=== PATIENT | female | born 1950 | race Caucasian/White ===

== ENCOUNTER 2024-07-16 10:22 | Inpatient (IN) | payer MEDICARE, MEDICAID ==
[~2024-07-16] VITALS: Ht 157.5 cm; Wt 73.6 kg
[~2024-07-16 10:22] MED LIST: ALBU8HFA PO; DILT360C52 PO; PANT40TA54 PO; SUCR1TAB PO
[2024-07-16] MEDS: diphenhydrAMINE 50 mg/ml inj IV ONE (11:14)
[2024-07-16 11:35] LABS: BASOPHILS % (AUTO) 0.6 % (0-1); EOSINOPHILS % (AUTO) 0.9 % (0-6); HEMATOCRIT 34.6 % (35.0-45.0); LYMPHOCYTES % (AUTO) 18.6 % (21-51); MEAN CORPUSCULAR HEMOGLOBIN 26.3 PG (27.0-31.0); MEAN CORPUSCULAR HGB CONC 31.9 g/dL (33.0-36.5); MEAN CORPUSCULAR VOLUME 82.5 FL (78-98); MEAN PLATELET VOLUME 8.6 FL (7.4-10.4); MONOCYTES # (AUTO) 0.3 X10'3 (0-0.9); MONOCYTES % (AUTO) 4.9 % (2-12); NEUTROPHILS # (AUTO) 3.9 X10'3 (1.8-7.7); PLATELET COUNT 165 X10'3 (140-440); RED CELL DISTRIBUTION WIDTH 16.2 % (11.5-14.5); WHITE BLOOD COUNT 5.2 X10'3 (4.5-11.0)
[2024-07-16] MEDS ORDERED: diatrozoate meglu/diatrozoate sod (37% iodine) 120ML oral solution PO ONE (11:40)
[2024-07-16 12:03] LABS: ALANINE AMINOTRANSFERASE 13 U/L (12-78); ALBUMIN/GLOBULIN RATIO 0.9 (1.1-1.5); ALKALINE PHOSPHATASE 111 IU/L (46-116); ANION GAP 12 (8-16); ASPARTATE AMINO TRANSFERASE 13 U/L (10-37); BILIRUBIN,TOTAL 0.5 MG/DL (0.1-1.0); BLOOD UREA NITROGEN 17 MG/DL (7-18); BUN/CREATININE RATIO 13.3 (10.0-20.0); CALCIUM 8.5 MG/DL (8.5-10.1); CHLORIDE 104 MMOL/L (99-107); CREATININE 1.28 MG/DL (0.40-0.90); GLUCOSE 103 MG/DL (70-104); LIPASE 37 U/L (16-77); SODIUM 141 MMOL/L (135-145); TOTAL CARBON DIOXIDE 25.5 MMOL/L (24-32); TOTAL PROTEIN 6.2 G/DL (6.4-8.2); eCRCL 30 ML/MIN; eGFR 41 ML/MIN
[2024-07-16] MEDS ORDERED: iohexol 300mg/ml 100ml inj. ONE (12:08)
[2024-07-16] MEDS: diatr meglu/diatrizoate 30ml oral sol.-(3 dose) bottle PO ONE (12:13)
[2024-07-16] MEDS ORDERED: magnesium sulf-water 4G/100mL 100 ML IV PRN (15:30)
[2024-07-16] MEDS ORDERED: mag hydrox/Alum hydrox/simeth 30ml oral suspension PO PRN (15:30)
[2024-07-16] MEDS ORDERED: HYDROmorphone inj. 0.5 MG/0.5 ML DISP.SYRIN IV PRN (15:30)
[2024-07-16] MEDS ORDERED: magnesium sulf-water 2g/50mL 50 ML IV PRN (15:30)
[2024-07-16] MEDS ORDERED: potassium Cl 20 mEq SR tablet PO PRN (15:30)
[2024-07-16] MEDS ORDERED: acetaminophen 325mg tablet PO PRN (15:30)
[2024-07-16] MEDS ORDERED: HYDROmorphone/PF 0.2 MG/ML SYRINGE IV PRN (15:30)
[2024-07-16] MEDS ORDERED: ondansetron/PF 4mg/2ml inj IV PRN (15:30)
[2024-07-16] MEDS ORDERED: potassium Cl 40MEQ/1/2NS 520ml 520 ML IV PRN (15:30)
[2024-07-16] MEDS ORDERED: bisacodyl 10mg suppository rectal RC PRN (15:30)
[2024-07-16] MEDS: sincalide inj 1.5 MCG in normal saline 100ml IV soln 98.5 ML IV ONE (15:46)
[2024-07-16] MEDS: normal saline 1000ml 1,000 ML IV SCH (15:53)
[2024-07-16 17:56] VITALS: BP 126/70; PULSE 60; RESP 16; TEMP 97.9; O2SAT 99
[2024-07-16] MEDS: docusate sod 100mg capsule PO SCH (20:00)
[2024-07-16] MEDS: K and/or MAG REPLACEMENT MC SCH (20:00)
[2024-07-16 20:20] VITALS: RESP 18
[2024-07-16] MEDS: heparin, porcine 5000 units/ml vial SQ SCH (20:40)
[2024-07-16 22:00] VITALS: BP 124/74; PULSE 56; RESP 14; TEMP 97.6; O2SAT 97
[2024-07-17] VITALS (9 sets, daily range): BP systolic 130–150; BP diastolic 68–101; PULSE 72–84; RESP 14–18; TEMP 96–98.6; O2SAT 95–98
[2024-07-17 06:01] LABS: BASOPHILS % (AUTO) 0.7 % (0-1); EOSINOPHILS # (AUTO) 0.1 X10'3 (0-0.9); EOSINOPHILS % (AUTO) 2.5 % (0-6); HEMATOCRIT 31.8 % (35.0-45.0); HEMOGLOBIN 10.1 g/dl (12.0-16.0); LYMPHOCYTES # (AUTO) 0.9 X10'3 (1.1-4.8); LYMPHOCYTES % (AUTO) 20.2 % (21-51); MEAN CORPUSCULAR HEMOGLOBIN 26.3 PG (27.0-31.0); MEAN CORPUSCULAR HGB CONC 31.7 g/dL (33.0-36.5); MEAN PLATELET VOLUME 8.6 FL (7.4-10.4); MONOCYTES # (AUTO) 0.3 X10'3 (0-0.9); MONOCYTES % (AUTO) 5.9 % (2-12); NEUTROPHILS # (AUTO) 3.1 X10'3 (1.8-7.7); NEUTROPHILS % (AUTO) 70.7 % (42-75); PLATELET COUNT 143 X10'3 (140-440); RED BLOOD COUNT 3.83 X10'6 (4.20-5.60); WHITE BLOOD COUNT 4.4 X10'3 (4.5-11.0)
[2024-07-17 06:20] LABS: ALANINE AMINOTRANSFERASE 11 U/L (12-78); ALBUMIN 2.7 G/DL (3.4-5.0); ALBUMIN/GLOBULIN RATIO 0.9 (1.1-1.5); ALKALINE PHOSPHATASE 102 IU/L (46-116); ANION GAP 11 (8-16); ASPARTATE AMINO TRANSFERASE 14 U/L (10-37); BILIRUBIN,TOTAL 0.4 MG/DL (0.1-1.0); BLOOD UREA NITROGEN 13 MG/DL (7-18); BUN/CREATININE RATIO 11.7 (10.0-20.0); CALCIUM 8.3 MG/DL (8.5-10.1); CHLORIDE 108 MMOL/L (99-107); CREATININE 1.11 MG/DL (0.40-0.90); GLUCOSE 87 MG/DL (70-104); MAGNESIUM 1.7 MG/DL (1.5-2.4); POTASSIUM 3.6 MMOL/L (3.5-5.1); SODIUM 142 MMOL/L (135-145); TOTAL CARBON DIOXIDE 23.2 MMOL/L (24-32); TOTAL PROTEIN 5.6 G/DL (6.4-8.2); eCRCL 34 ML/MIN; eGFR 48 ML/MIN
[2024-07-17] MEDS ORDERED: [UNRECOGNIZED DRUG - CODE] PO (10:38)
[2024-07-17] MEDS: metroNIDAZOLE-Flagyl 500mg/NS 100 ML IV SCH (17:08)
[2024-07-17] MEDS: pantoprazole 40mg Tablet.DR PO SCH (20:00)
[2024-07-17] MEDS: ciprofloxacin lact 400MG/200ML 200 ML IV SCH (20:00)
[2024-07-17] MEDS: diatr meglu/diatrizoate 30ml oral sol.-(3 dose) bottle PO SCH (22:12)
[2024-07-18] VITALS (8 sets, daily range): BP systolic 146–163; BP diastolic 86–98; PULSE 53–88; RESP 16–20; TEMP 97.2–98.3; O2SAT 91–98
[2024-07-18 04:35] LABS: BASOPHILS % (AUTO) 0.7 % (0-1); EOSINOPHILS # (AUTO) 0.1 X10'3 (0-0.9); EOSINOPHILS % (AUTO) 1.9 % (0-6); HEMATOCRIT 30.2 % (35.0-45.0); HEMOGLOBIN 9.6 g/dl (12.0-16.0); LYMPHOCYTES # (AUTO) 0.9 X10'3 (1.1-4.8); LYMPHOCYTES % (AUTO) 20.3 % (21-51); MEAN CORPUSCULAR HEMOGLOBIN 26.4 PG (27.0-31.0); MEAN CORPUSCULAR HGB CONC 31.8 g/dL (33.0-36.5); MEAN CORPUSCULAR VOLUME 83.1 FL (78-98); MEAN PLATELET VOLUME 8.4 FL (7.4-10.4); MONOCYTES # (AUTO) 0.3 X10'3 (0-0.9); MONOCYTES % (AUTO) 6.4 % (2-12); NEUTROPHILS # (AUTO) 3.1 X10'3 (1.8-7.7); NEUTROPHILS % (AUTO) 70.7 % (42-75); PLATELET COUNT 137 X10'3 (140-440); RED BLOOD COUNT 3.63 X10'6 (4.20-5.60); RED CELL DISTRIBUTION WIDTH 16.3 % (11.5-14.5); WHITE BLOOD COUNT 4.4 X10'3 (4.5-11.0)
[2024-07-18 04:54] LABS: ALANINE AMINOTRANSFERASE 9 U/L (12-78); ALBUMIN 2.5 G/DL (3.4-5.0); ALBUMIN/GLOBULIN RATIO 0.9 (1.1-1.5); ALKALINE PHOSPHATASE 93 IU/L (46-116); ANION GAP 11 (8-16); ASPARTATE AMINO TRANSFERASE 18 U/L (10-37); BILIRUBIN,TOTAL 0.4 MG/DL (0.1-1.0); BLOOD UREA NITROGEN 10 MG/DL (7-18); BUN/CREATININE RATIO 9.5 (10.0-20.0); CALCIUM 8.3 MG/DL (8.5-10.1); CHLORIDE 109 MMOL/L (99-107); CREATININE 1.05 MG/DL (0.40-0.90); GLUCOSE 95 MG/DL (70-104); MAGNESIUM 1.6 MG/DL (1.5-2.4); POTASSIUM 3.5 MMOL/L (3.5-5.1); SODIUM 142 MMOL/L (135-145); TOTAL CARBON DIOXIDE 22.4 MMOL/L (24-32); TOTAL PROTEIN 5.3 G/DL (6.4-8.2); eCRCL 36 ML/MIN; eGFR 51 ML/MIN
[2024-07-18] MEDS ORDERED: hydrALAZINE 20mg/ml inj. IV PRN (10:35)
[2024-07-18] MEDS ORDERED: diatr meglu/diatrizoate 30ml oral sol.-(3 dose) bottle ONE (14:31)
[2024-07-19] VITALS (17 sets, daily range): BP systolic 109–154; BP diastolic 73–98; PULSE 59–91; RESP 13–18; TEMP 97.5–98.2; O2SAT 92–100
[2024-07-19 04:52] LABS: BASOPHILS % (AUTO) 0.7 % (0-1); EOSINOPHILS # (AUTO) 0.1 X10'3 (0-0.9); EOSINOPHILS % (AUTO) 1.9 % (0-6); HEMATOCRIT 28.3 % (35.0-45.0); HEMOGLOBIN 8.9 g/dl (12.0-16.0); LYMPHOCYTES # (AUTO) 0.6 X10'3 (1.1-4.8); LYMPHOCYTES % (AUTO) 16.8 % (21-51); MEAN CORPUSCULAR HEMOGLOBIN 26.1 PG (27.0-31.0); MEAN CORPUSCULAR HGB CONC 31.6 g/dL (33.0-36.5); MEAN CORPUSCULAR VOLUME 82.8 FL (78-98); MEAN PLATELET VOLUME 8.3 FL (7.4-10.4); MONOCYTES # (AUTO) 0.2 X10'3 (0-0.9); MONOCYTES % (AUTO) 6.6 % (2-12); NEUTROPHILS # (AUTO) 2.8 X10'3 (1.8-7.7); PLATELET COUNT 119 X10'3 (140-440); RED BLOOD COUNT 3.42 X10'6 (4.20-5.60); RED CELL DISTRIBUTION WIDTH 16.1 % (11.5-14.5); WHITE BLOOD COUNT 3.8 X10'3 (4.5-11.0)
[2024-07-19 05:00] LABS: INR 1.3 INR; PROTHROMBIN TIME 12.9 SECONDS (9.0-12.0)
[2024-07-19 05:06] LABS: ALANINE AMINOTRANSFERASE 11 U/L (12-78); ALBUMIN 2.4 G/DL (3.4-5.0); ALKALINE PHOSPHATASE 81 IU/L (46-116); ANION GAP 9 (8-16); ASPARTATE AMINO TRANSFERASE 11 U/L (10-37); BILIRUBIN,TOTAL 0.4 MG/DL (0.1-1.0); BLOOD UREA NITROGEN 8 MG/DL (7-18); BUN/CREATININE RATIO 7.3 (10.0-20.0); CALCIUM 8.1 MG/DL (8.5-10.1); CHLORIDE 109 MMOL/L (99-107); CREATININE 1.09 MG/DL (0.40-0.90); GLUCOSE 105 MG/DL (70-104); MAGNESIUM 1.4 MG/DL (1.5-2.4); POTASSIUM 3.2 MMOL/L (3.5-5.1); SODIUM 140 MMOL/L (135-145); TOTAL CARBON DIOXIDE 22.5 MMOL/L (24-32); TOTAL PROTEIN 4.9 G/DL (6.4-8.2); eCRCL 35 ML/MIN; eGFR 49 ML/MIN
[2024-07-19] MEDS: potassium Cl 20 mEq SR tablet PO PRN ×2 (07:10→20:43)
[2024-07-19] MEDS ORDERED: magnesium sulf-water 2g/50mL 50 ML IV PRN ×2 (07:15→17:55)
[2024-07-19] MEDS ORDERED: magnesium sulf-water 4G/100mL 100 ML IV PRN ×2 (07:15→17:55)
[2024-07-19] MEDS: magnesium Cl slow-release 64mg tablet PO PRN (07:22)
[2024-07-19] MEDS ORDERED: morphine 4 MG/ML inj SYRINge IV PRN (12:35)
[2024-07-19] MEDS ORDERED: ondansetron/PF 4mg/2ml inj IV PRN (12:35)
[2024-07-19] MEDS ORDERED: fentaNYL/PF 50MCG/1 ML 2ML syringe IV PRN ×2 (12:35)
[2024-07-19] MEDS ORDERED: labetalol 20mg/4ml (5mg/ml) syringe IV PRN (12:35)
[2024-07-19] MEDS ORDERED: morphine 2 MG/ML inj. syringe IV PRN (12:35)
[2024-07-19] MEDS ORDERED: hydrALAZINE 20mg/ml inj. IV PRN (12:35)
[2024-07-19] MEDS ORDERED: sevoflurane 250ml liquid IH ONE (13:30)
[2024-07-19] MEDS ORDERED: fentaNYL/PF 50MCG/1 ML 2ML syringe ONE (13:48)
[2024-07-19] MEDS ORDERED: LIDOcaine 2% (20mg/ml) 5ml vial ONE (13:48)
[2024-07-19] MEDS ORDERED: propofol inj 20 ML IV ONE (13:48)
[2024-07-19] MEDS ORDERED: midazolam 1 mg/ML 2ml injection ONE (13:48)
[2024-07-19] MEDS ORDERED: naloxone 0.4 mg/ml inj IV PRN (14:25)
[2024-07-19] MEDS ORDERED: HYDROcodone/acetaminophen 5mg/325mg tablet PO PRN (14:25)
[2024-07-19] MEDS: BUPIVAcaine 2.5mg/ml inj 50ml vial (contains preservative) ONE (14:58)
[2024-07-19] MEDS: ringers solution, lacted 1,000 ML IV SCH (14:58)
[2024-07-19] MEDS ORDERED: potassium Cl 20 mEq SR tablet PO PRN (17:55)
[2024-07-20] VITALS: BP 156/100; PULSE 71
[2024-07-20 04:44] LABS: BASOPHILS % (AUTO) 0.2 % (0-1); EOSINOPHILS % (AUTO) 0.1 % (0-6); HEMATOCRIT 27.8 % (35.0-45.0); HEMOGLOBIN 8.9 g/dl (12.0-16.0); LYMPHOCYTES # (AUTO) 0.5 X10'3 (1.1-4.8); LYMPHOCYTES % (AUTO) 12.6 % (21-51); MEAN CORPUSCULAR HEMOGLOBIN 26.6 PG (27.0-31.0); MEAN CORPUSCULAR HGB CONC 31.9 g/dL (33.0-36.5); MEAN CORPUSCULAR VOLUME 83.3 FL (78-98); MEAN PLATELET VOLUME 8.3 FL (7.4-10.4); MONOCYTES # (AUTO) 0.2 X10'3 (0-0.9); MONOCYTES % (AUTO) 4.7 % (2-12); NEUTROPHILS # (AUTO) 3.3 X10'3 (1.8-7.7); NEUTROPHILS % (AUTO) 82.4 % (42-75); PLATELET COUNT 115 X10'3 (140-440); RED BLOOD COUNT 3.33 X10'6 (4.20-5.60); RED CELL DISTRIBUTION WIDTH 16.1 % (11.5-14.5)
[2024-07-20 04:57] LABS: ALANINE AMINOTRANSFERASE 10 U/L (12-78); ALBUMIN 2.3 G/DL (3.4-5.0); ALBUMIN/GLOBULIN RATIO 0.9 (1.1-1.5); ALKALINE PHOSPHATASE 76 IU/L (46-116); ANION GAP 8 (8-16); ASPARTATE AMINO TRANSFERASE 13 U/L (10-37); BILIRUBIN,TOTAL 0.3 MG/DL (0.1-1.0); BLOOD UREA NITROGEN 8 MG/DL (7-18); BUN/CREATININE RATIO 6.7 (10.0-20.0); CALCIUM 7.8 MG/DL (8.5-10.1); CHLORIDE 111 MMOL/L (99-107); CREATININE 1.19 MG/DL (0.40-0.90); GLUCOSE 111 MG/DL (70-104); MAGNESIUM 1.3 MG/DL (1.5-2.4); SODIUM 141 MMOL/L (135-145); TOTAL CARBON DIOXIDE 22.4 MMOL/L (24-32); TOTAL PROTEIN 4.9 G/DL (6.4-8.2); eCRCL 32 ML/MIN; eGFR 44 ML/MIN
[2024-07-20 06:00] VITALS: BP 136/74; PULSE 74; RESP 16; TEMP 97.8; O2SAT 97
[2024-07-20 09:56] VITALS: RESP 18
[2024-07-20 10:00] VITALS: BP 145/86; PULSE 71; RESP 20; TEMP 97.4; O2SAT 98
[2024-07-20] MEDS ORDERED: METR-159 PO (10:23)
[2024-07-20] MEDS ORDERED: LACT1CAP76 PO (10:23)
[2024-07-20] MEDS ORDERED: CIPR-202 PO (10:23)
== END 2024-07-20 17:30 | disposition home or self-care (01) | DRG 357 ==
LOC: ER 10:22 → ED HOLD 15:33 → EDBEDREQ 16:16 → SUR 3N 17:30
PROVIDERS: ADMIT Family Medicine; ATTEND Family Medicine
PROC: CF1C1ZZ Planar Nuclear Medicine Imaging of Hepatobiliary System, All using Technetium 99m (Tc-99m) (ICD-10-PCS; 2024-07-17)
PROC: 0WBF0ZZ Excision of Abdominal Wall, Open Approach (ICD-10-PCS; principal; 2024-07-19 13:30)
DX: R19.04 Left lower quadrant abdominal swelling, mass and lump (principal); E44.0 Moderate protein-calorie malnutrition; L02.211 Cutaneous abscess of abdominal wall; K21.9 Gastro-esophageal reflux disease without esophagitis; K44.9 Diaphragmatic hernia without obstruction or gangrene; I10 Essential (primary) hypertension; Z88.8 Allergy status to other drugs, medicaments and biological substances; Z88.0 Allergy status to penicillin; Z79.899 Other long term (current) drug therapy; Z68.25 Body mass index [BMI] 25.0-25.9, adult; N28.9 Disorder of kidney and ureter, unspecified; D64.9 Anemia, unspecified
CPT/HCPCS: 36415; 74176; 74177; 78227; 80053; 82948; 83605; 83690; 83735; 85025; 85610; 87070; 87075; 87081; 93005; 99285; A4618; A6253; A6258; A6266; A6449; A7000; A9537; G0378; J0744; J1100; J1200; J1644; J2250; J2405; J2704; J2805; J3010; J3490; J7030; Q9963; Q9967

== ENCOUNTER 2024-08-12 16:19 | Emergency (ER) | payer MEDICARE, MEDICAID ==
[~2024-08-12] VITALS: Ht 157.5 cm; Wt 85.3 kg
[~2024-08-12 16:19] MED LIST changes: +CIPR-202 PO; +LACT1CAP76 PO; +METR-159 PO; +[UNRECOGNIZED DRUG - CODE] PO
[2024-08-12] MEDS ORDERED: heparin 10,000 units/1 ML INJ IV PRN (17:15)
[2024-08-12] MEDS: COMMUNICATION ORDER 1 EA MISC MC ONE (17:25)
[2024-08-12 17:27] LABS: BASOPHILS % (AUTO) 0.1 % (0-1); EOSINOPHILS % (AUTO) 0 % (0-6); HEMATOCRIT 36.2 % (35.0-45.0); HEMOGLOBIN 11.3 g/dl (12.0-16.0); LYMPHOCYTES # (AUTO) 0.4 X10'3 (1.1-4.8); LYMPHOCYTES % (AUTO) 3.7 % (21-51); MEAN CORPUSCULAR HEMOGLOBIN 26.4 PG (27.0-31.0); MEAN CORPUSCULAR HGB CONC 31.3 g/dL (33.0-36.5); MEAN CORPUSCULAR VOLUME 84.2 FL (78-98); MEAN PLATELET VOLUME 9.1 FL (7.4-10.4); MONOCYTES # (AUTO) 0.5 X10'3 (0-0.9); NEUTROPHILS % (AUTO) 92.2 % (42-75); PLATELET COUNT 191 X10'3 (140-440); RED CELL DISTRIBUTION WIDTH 19.3 % (11.5-14.5); WHITE BLOOD COUNT 11.9 X10'3 (4.5-11.0)
[2024-08-12 17:31] LABS: ABG BASE EXCESS -11.1 mmol/L (-2.0-3.0); ABG HCO3 14.1 mmol/L (21.0-28.0); ABG OXYGEN SATURATION 90.3 % (94.0-98.0); ABG PCO2 (T) 29.1 mmHg (32.0-45.0); ABG PO2 (T) 63.5 mmHg (83.0-108.0); ALLEN'S TEST POSITIVE; FCOHb 0.3 % (0.5-1.5); FHHb 9.6 % (0.0-5.0); FLOW 15 L/min; FMetHb 0.3 % (0.0-1.5); FO2Hb 89.8 % (94.0-98.0); MODE MASK - NRB; PATIENT TEMPERATURE 36.7; TOTAL HEMOGLOBIN 11.9 G/dl (12.0-16.0)
[2024-08-12] MEDS: heparin 25,000 UNIT/250ml bag 250 ML IV PRN (17:32)
[2024-08-12 17:38] LABS: D-DIMER 16.02 MG/L FEU (0-0.50)
[2024-08-12 17:47] LABS: PLATELET ESTIMATE NORMAL
[2024-08-12 17:48] LABS: ALBUMIN 2.7 G/DL (3.4-5.0); ANION GAP 13 (8-16); ANISOCYTOSIS 2+; BLOOD UREA NITROGEN 38 MG/DL (7-18); BUN/CREATININE RATIO 11.7 (10.0-20.0); BURR CELLS 1+; CALCIUM 8.5 MG/DL (8.5-10.1); CHLORIDE 105 MMOL/L (99-107); CREATININE 3.25 MG/DL (0.40-0.90); GLUCOSE 197 MG/DL (70-104); MAGNESIUM 2.2 MG/DL (1.5-2.4); PRO BRAIN NATRIURETIC PEPTIDE 22840 PG/ML (0-450); SODIUM 138 MMOL/L (135-145); TOTAL CARBON DIOXIDE 20.3 MMOL/L (24-32); eCRCL 12 ML/MIN; eGFR 14 ML/MIN
[2024-08-12 17:50] LABS: POLYCHROMASIA FEW
[2024-08-12 17:55] VITALS: PULSE 89; RESP 17; O2SAT 96
[2024-08-12] MEDS ORDERED: iohexol 350MG/ML 100ml bottle IV ONE (17:59)
[2024-08-12 18:01] LABS: INR 1.3 INR; PROTHROMBIN TIME 13.4 SECONDS (9.0-12.0)
[2024-08-12 18:07] LABS: APTT 91 SECONDS (22-32)
[2024-08-12 18:34] VITALS: PULSE 90; RESP 18; O2SAT 96
[2024-08-12] MEDS: normal saline 1000ml 1,000 ML IV ONE ×2 (19:27→19:28)
[2024-08-12] MEDS: MESSAGE TO NURSING IV ONE (19:37)
[2024-08-12] MEDS: HYDROcodone/acetaminophen 5mg/325mg tablet PO ONE (20:53)
[2024-08-12 23:28] VITALS: PULSE 87; RESP 14; O2SAT 96
[2024-08-13] MEDS: alteplase 100MG inj. 100 ML IV ONE (02:19)
[2024-08-13 03:59] VITALS: TEMP 98.6
[2024-08-13 04:04] VITALS: PULSE 84; RESP 14; O2SAT 98
[2024-08-13 04:12] VITALS: PULSE 84; RESP 16; O2SAT 93
[2024-08-13 04:13] VITALS: BP 100/74; PULSE 84; RESP 16; O2SAT 95
== END 2024-08-13 04:39 | disposition short-term general hospital (02) ==
LOC: ER 16:20
DX: J90 Pleural effusion, not elsewhere classified (principal); I26.99 Other pulmonary embolism without acute cor pulmonale; I10 Essential (primary) hypertension; Q60.0 Renal agenesis, unilateral; I48.91 Unspecified atrial fibrillation; I45.10 Unspecified right bundle-branch block; Z88.1 Allergy status to other antibiotic agents; Z88.0 Allergy status to penicillin; Z88.8 Allergy status to other drugs, medicaments and biological substances
CPT/HCPCS: 36415; 36600; 37195; 71045; 71275; 80048; 82803; 83735; 83880; 84484; 85008; 85018; 85025; 85379; 85610; 85730; 93005; 93970; 96361; 96365; 96366; 96375; 99285; A4620; J1644; J2997; J7030; Q9967; 94760